=== PATIENT | female | born 1955 | race Caucasian/White ===

== ENCOUNTER 2019-09-01 11:34 | Outpatient (CLI) | payer MEDICARE, OTHER, SELFPAY ==
--- NOTE | 2019-09-01 11:43 | XR_ITS ---
WS: [id number] LEFT KNEE: 3 VIEW(S) TECHNIQUE: AP, oblique(s) and lateral. HISTORY: MENISCUS DERANGEMENTS COMPARISON: None available. No fracture or dislocation. Mild narrowing of all 3 compartments. Bilateral calcific or osseous densities in the suprapatellar region. This could be loose bodies in th e joint extending over a length of 2.0 cm. XR/XR knee LT 3V* [id number] IMPRESSION: Demineralization about the patella. Favor these are probably loose bodies in th e suprapatellar bursa. Mild tricompartment arthritis.
--- NOTE | 2019-09-01 11:43 | XR_ITS ---
WS: [id number] LEFT HAND: 3 VIEW(S) TECHNIQUE: PA, oblique and lateral. HISTORY: PRIMARY OSTEOARTHRITIS LEFT HAND COMPARISON: None available. No acute fracture or dislocation. Mild diffuse interphalangeal joint space narrowing. Moderate narrowing of the first carpometacarpal j oint. No subluxation. No erosion at the metacarpal heads. XR/XR hand LT min 3V* [id number] IMPRESSION: Mild to moderate osteoarthritis.
== END 2019-09-01 11:35 | disposition home or self-care (01) ==
LOC: RADWPI 11:40
PROVIDERS: Family Provider Family Medicine; PCP Nurse Practitioner Family; Visit Provider Nurse Practitioner Family
DX: M19.042 Primary osteoarthritis, left hand (principal); M23.301 Other meniscus derangements, unspecified lateral meniscus, left knee; M81.8 Other osteoporosis without current pathological fracture; M17.12 Unilateral primary osteoarthritis, left knee
CPT/HCPCS: 73130; 73562

== ENCOUNTER 2020-01-19 11:51 | Outpatient (CLI) | payer MEDICARE, OTHER, SELFPAY ==
[2020-01-19 16:11] LABS: Estmated Average Glucose 103; Hemoglobin A1C 5.2 % (4.0-6.0)
[2020-01-19 16:12] LABS: Anion Gap 13.2 (5-19); Blood Urea Nitrogen 23 mg/dL (8-23); Calcium 9.2 mg/dL (8.5-10.5); Carbon Dioxide 26 mmol/L (22-29); Chloride 105 mmol/L (98-107); Chol HDL Ratio 3.74 mg/dL (0.0-4.40); Cholesterol 198 mg/dL (0-200); Glomerular Filtration Rate 62.6 mL/min (90-130); Glucose 88 mg/dL (65-115); HDL Cholesterol 53 mg/dL (60-100); LDL Cholesterol Calculated 127 mg/dL (50-129); Osmolality Calculated 286 mOsm/kg (285-295); Potassium 4.2 mmol/L (3.5-5.1); Sodium 140 mmol/L (136-145); Triglycerides 91 mg/dL (0-150)
[2020-01-19 16:31] LABS: Thyroid Stimulating Hormone 1.37 uIU/mL (0.27-4.20)
== END 2020-01-19 11:52 | disposition home or self-care (01) ==
LOC: LAB 11:52
PROVIDERS: PCP Nurse Practitioner Family; Visit Provider Nurse Practitioner Family
DX: E03.9 Hypothyroidism, unspecified (principal)
CPT/HCPCS: 80048; 80061; 83036; 84443